=== PATIENT | female | born 1995 ===

== ENCOUNTER 2021-08-09 22:28 | Inpatient (IN) ==
[2021-08-09] MEDS ORDERED: ACETAMINOPHEN 325 MG TABLET PO PRN (22:58)
[2021-08-09] MEDS ORDERED: hydrALAZINE 20 MG/1 ML VIAL IV PRN (22:58)
[2021-08-09] MEDS ORDERED: NICOTINE 21 MG/24 HR PATCH TRANSDERM PRN (22:58)
[2021-08-09] MEDS ORDERED: ZALEPLON 5 MG CAPSULE PO PRN (22:58)
[2021-08-09] MEDS ORDERED: diphenhydrAMINE CAP 25 MG CAPSULE PO PRN (22:58)
[2021-08-09] MEDS ORDERED: ONDANSETRON 4 MG/2 ML VIAL IV PRN (22:58)
[2021-08-09] MEDS ORDERED: GLUCAGON 1 MG VIAL IM PRN ×2 (22:58)
[2021-08-09] MEDS ORDERED: DEXTROSE 50% 25 GM/50 ML VIAL IV PRN ×2 (22:58)
[2021-08-10 00:42] LABS: Basophils # 0.1 10*3/uL (0.0-0.2); Basophils % 0.4 % (0.0-0.8); Eosinophils # 0.1 10*3/uL (0.0-0.87); Eosinophils % 0.8 % (0.00-10.9); Hematocrit 38.9 VOL% (35.7-47.0); Hemoglobin 12.5 GM/DL (12.0-16.0); Immature Granulocytes % 0.6 %; Immature Granulocytes Absolute 0.07 #; Lymphocytes # 4.4 10*3/uL (1.4-4.0); Lymphocytes % 35.7 % (21.3-54.2); Mean Corpuscular HGB Conc 32.1 GM/DL (32-36); Mean Corpuscular Volume 94.6 FL (87-102); Mean Platelet Volume 10.3 FL (9.6-12.0); Monocytes % 6.9 % (1.7-12.7); Neutrophils % 55.6 % (38.7-73.9); Platelet Count 393 T/CUMM (130-400); Red Blood Count 4.11 MC/CUMM (3.8-5.5); Red Cell Distribution Width 12.2 % (9.3-17.3); White Blood Count 12.3 T/CUMM (4-12)
[2021-08-10 00:48] LABS: Osmolality,Calculated 273.1 MOS/KG (273-304); Potassium 4.2 MMOL/L (3.5-5.1)
[2021-08-10] MEDS: CLINDAMYCIN INJ 600 MG/50 ML PREMIX IV SCH ×3 (01:06→16:50)
[2021-08-10] MEDS: SODIUM CHLORIDE 0.9% 1,000 ML IV SCH (01:06)
[2021-08-10] MEDS: MORPHINE 2 MG/1 ML SYRINGE IV PRN ×2 (01:08→14:22)
[2021-08-10] MEDS: VANCOMYCIN INJ 2,000 MG in SODIUM CHLORIDE 0.9% 500 ML IV SCH ×2 (02:06→14:56)
[2021-08-10 06:13] LABS: Risk Ratio 3.68; VLDL Cholesterol 22.4 MG/DL
[2021-08-10] MEDS ORDERED: MEPERIDINE 25 MG/1 ML VIAL IV PRN (09:26)
[2021-08-10] MEDS ORDERED: diphenhydrAMINE 50 MG/1 ML VIAL IV PRN (09:26)
[2021-08-10] MEDS ORDERED: PROMETHAZINE INJ 25 MG in SODIUM CHLORIDE 0.9% 50 ML IV PRN (09:26)
[2021-08-10] MEDS ORDERED: HYDROmorphone 2 MG/1 ML VIAL IV PRN (09:26)
[2021-08-10] MEDS ORDERED: ONDANSETRON 4 MG/2 ML VIAL IV PRN (09:26)
[2021-08-10] MEDS: ENOXAPARIN 40 MG/0.4 ML SYRINGE SUBCUT SCH (10:01)
[2021-08-10] MEDS: DOCUSATE SODIUM 100 MG CAPSULE PO SCH ×2 (10:01→21:26)
[2021-08-10] MEDS: INSULIN LISPRO 100 UNIT/ML SUBCUT SCH ×4 (10:01→22:02)
[2021-08-10] MEDS: PANTOPRAZOLE 40 MG TABLET PO SCH (10:06)
[2021-08-10] MEDS ORDERED: DEXAMETHASONE 4 MG/1 ML VIAL ONE (11:50)
[2021-08-10] MEDS ORDERED: ROCURONIUM 50 MG/5 ML VIAL IV ONE (11:50)
[2021-08-10] MEDS ORDERED: SEVOFLURANE 1 UNIT/15 MINUTE INH ONE ×3 (11:50→13:05)
[2021-08-10] MEDS ORDERED: propofoL 200 MG/20 ML VIAL IV ONE (11:50)
[2021-08-10] MEDS ORDERED: fentaNYL 100 MCG/2 ML VIAL ONE (11:50)
[2021-08-10] MEDS ORDERED: ONDANSETRON 4 MG/2 ML VIAL ONE (11:50)
[2021-08-10] MEDS ORDERED: MIDAZOLAM 2 MG/2 ML VIAL ONE (11:50)
[2021-08-10] MEDS ORDERED: SUCCINYLCHOLINE 200 MG/10 ML VIAL ONE (11:50)
[2021-08-10] MEDS ORDERED: LIDOCAINE 2% 5 ML VIAL ONE (11:50)
[2021-08-10] MEDS ORDERED: SODIUM CHLORIDE 0.9% 1,000 ML IV ONE (12:09)
[2021-08-10] MEDS ORDERED: KETOROLAC 30 MG/1 ML VIAL ONE (12:23)
[2021-08-10] MEDS ORDERED: ACETAMINOPHEN INJ 1,000 MG/100 ML VIAL IV ONE (12:23)
[2021-08-10] MEDS ORDERED: MEPERIDINE 50 MG/1 ML VIAL IV PRN (14:30)
[2021-08-11] MEDS: CLINDAMYCIN INJ 600 MG/50 ML PREMIX IV SCH ×3 (01:58→17:09)
[2021-08-11] MEDS: VANCOMYCIN INJ 2,000 MG in SODIUM CHLORIDE 0.9% 500 ML IV SCH ×2 (04:43→13:42)
[2021-08-11] MEDS: guaiFENesin/DM ER 600-30 MG TABLET PO PRN ×2 (04:47→17:07)
[2021-08-11] MEDS: DOCUSATE SODIUM 100 MG CAPSULE PO SCH ×2 (08:50→21:25)
[2021-08-11] MEDS: PANTOPRAZOLE 40 MG TABLET PO SCH (08:50)
[2021-08-11] MEDS: INSULIN LISPRO 100 UNIT/ML SUBCUT SCH ×4 (08:51→21:25)
[2021-08-11] MEDS: ENOXAPARIN 40 MG/0.4 ML SYRINGE SUBCUT SCH (08:52)
[2021-08-11 11:03] LABS: Basophils % 0.3 % (0.0-0.8); Eosinophils % 0.2 % (0.00-10.9); Hematocrit 32.7 VOL% (35.7-47.0); Hemoglobin 10.9 GM/DL (12.0-16.0); Immature Granulocytes % 0.8 %; Immature Granulocytes Absolute 0.09 #; Lymphocytes # 3.3 10*3/uL (1.4-4.0); Mean Corpuscular HGB Conc 33.3 GM/DL (32-36); Mean Corpuscular Volume 92.6 FL (87-102); Mean Platelet Volume 10.4 FL (9.6-12.0); Monocytes % 6.3 % (1.7-12.7); Neutrophils % 61.4 % (38.7-73.9); Platelet Count 352 T/CUMM (130-400); Red Blood Count 3.53 MC/CUMM (3.8-5.5); Red Cell Distribution Width 12.1 % (9.3-17.3); White Blood Count 10.6 T/CUMM (4-12)
[2021-08-11 11:18] LABS: Calcium 8.6 MG/DL (8.5-10.1); Osmolality,Calculated 276.4 MOS/KG (273-304); Potassium 3.7 MMOL/L (3.5-5.1)
[2021-08-11] MEDS: SODIUM CHLORIDE 0.9% 1,000 ML IV SCH (13:41)
[2021-08-12] MEDS: CLINDAMYCIN INJ 600 MG/50 ML PREMIX IV SCH ×2 (01:28→08:07)
[2021-08-12] MEDS: VANCOMYCIN INJ 2,000 MG in SODIUM CHLORIDE 0.9% 500 ML IV SCH ×2 (02:16→15:10)
[2021-08-12] MEDS: PANTOPRAZOLE 40 MG TABLET PO SCH (08:05)
[2021-08-12] MEDS: INSULIN LISPRO 100 UNIT/ML SUBCUT SCH ×2 (08:06→12:33)
[2021-08-12] MEDS: DOCUSATE SODIUM 100 MG CAPSULE PO SCH (08:06)
[2021-08-12] MEDS: ENOXAPARIN 40 MG/0.4 ML SYRINGE SUBCUT SCH (08:07)
[2021-08-12] MEDS ORDERED: SODIUM HYPOCHLORITE 0.25% IRRIG 473 ML BOTTLE TOP SCH (10:00)
[2021-08-12 11:50] VITALS: BP 126/81
== END 2021-08-12 15:30 | disposition home or self-care (01) | DRG 571 ==
LOC: N.5E 23:55 → SUATTDRO 23:55
PROVIDERS: ADMIT Internal Medicine; ATTEND Internal Medicine